=== PATIENT | female | born 2000 | race Caucasian/White ===

== ENCOUNTER 2025-07-04 00:01 | Inpatient (IN) | payer OTHER ==
[2025-07-04] MEDS ORDERED: hydrALAZINE 20 MG/ML VIAL SLOW IVP PRN (00:06)
[2025-07-04 00:29] VITALS: BMI 27.4
[2025-07-04 01:09] LABS: Fetal Membranes Rupture RUPTURE DETECTED (No Rupture)
[2025-07-04] MEDS ORDERED: Tranexamic Acid 1,000 MG/10 ML VIAL IVP PRN (01:22)
[2025-07-04] MEDS ORDERED: Lidocaine 1% (PF) 30 ML VIAL SC PRN (01:22)
[2025-07-04] MEDS ORDERED: Carboprost 250 MCG/ML AMP IM PRN (01:22)
[2025-07-04] MEDS ORDERED: Acetaminophen 500 MG TAB PO PRN (01:22)
[2025-07-04] MEDS ORDERED: Ondansetron PF 4 MG/2 ML Vial IVP PRN ×2 (01:22→08:22)
[2025-07-04] MEDS ORDERED: Diphenoxylate HCl/Atropine Tablet PO PRN ×2 (01:22)
[2025-07-04] MEDS ORDERED: Methylergonovine 0.2 MG/ML VIAL IM PRN (01:22)
[2025-07-04] MEDS ORDERED: Oxytocin 30 units/NS 500 ML 500 ML IV SCH (01:30)
[2025-07-04 01:35] LABS: Hematocrit 36.1 % (34.9-44.5); Hemoglobin 12.3 g/dL (12.0-15.5); Mean Corpuscular Hemoglobin 30.4 pg (27.0-33.0); Mean Corpuscular Volume 89.1 fL (81.6-98.3); Platelet Count 186 10x3/uL (150-450); Red Blood Cell (RBC) Count 4.05 10x6/uL (3.90-5.03); White Blood Cell (WBC) Count 11.05 10x3/uL (3.5-10.5)
[2025-07-04 02:07] LABS: Hep B Surf Ag - L&D Non-Reactive S/CO (NonReactive)
[2025-07-04 02:09] LABS: Syphilis Antibody Index 0.14 S/CO (<1.00 Non-Reactive)
[2025-07-04] MEDS: Oxytocin 30 units/NS 500 ML 500 ML IV SCH ×2 (06:13→18:32)
[2025-07-04] MEDS ORDERED: Acetaminophen 325 MG TAB PO PRN (08:22)
[2025-07-04] MEDS ORDERED: diphenhydrAMINE 50 MG/ML VIAL IVP PRN (08:22)
[2025-07-04] MEDS ORDERED: Communication Order-Pharmacy FS SCH (08:30)
[2025-07-04] MEDS: fentaNYL 2 mcg/Ropivacaine 0.2% Epidural 100 ML CADD EPIDURAL SCH (09:53)
[2025-07-04] MEDS: Ibuprofen 800 MG TAB PO PRN (18:31)
[2025-07-05] MEDS ORDERED: Bisacodyl 10 MG SUPP PR PRN (01:19)
[2025-07-05] MEDS ORDERED: Benzocaine-Menthol 82.5 ML CAN TOP PRN (01:19)
[2025-07-05] MEDS ORDERED: Ondansetron PF 4 MG/2 ML Vial IVP PRN (01:19)
[2025-07-05] MEDS ORDERED: Milk Of Magnesia 30 ML UDCUP PO PRN (01:19)
[2025-07-05] MEDS ORDERED: diphenhydrAMINE 25 MG CAP PO PRN (01:19)
[2025-07-05] MEDS ORDERED: HYDROcodone/Acetaminophen 5/325 mg Tablet PO PRN (01:19)
[2025-07-05] MEDS ORDERED: hydrALAZINE 20 MG/ML VIAL SLOW IVP PRN (01:19)
[2025-07-05] MEDS ORDERED: Preparation H Ointment 28 GM TUBE PR PRN (01:19)
[2025-07-05] MEDS ORDERED: Lanolin Ointment 7 GM TUBE TOP PRN (01:19)
[2025-07-05] MEDS: Ibuprofen 800 MG TAB PO SCH (01:50)
[2025-07-05] MEDS: fentaNYL/Ropivacaine Epidural 100 ML ONE (07:37)
[2025-07-05] MEDS: Methylergonovine 0.2 MG/ML VIAL ONE (07:37)
[2025-07-05] MEDS: Tranexamic Acid 1,000 MG/10 ML VIAL ONE (07:38)
[2025-07-05] MEDS: Oxytocin 30 units/NS 500 ML 500 ML ONE (07:38)
[2025-07-05] MEDS: Ferrous Sulfate 325 MG TAB PO SCH (07:40)
[2025-07-05] MEDS ORDERED: Bupivacaine/Epinephrine 0.25% 30 ML VIAL ONE (11:56)
[2025-07-06 11:48] VITALS: BP 114/66; TEMP 98.1
== END 2025-07-06 15:00 | disposition home or self-care (01) | DRG 807 ==
LOC: CSHLD/OP 00:01 → CSHLD 01:40 → CSHPP 19:45
PROVIDERS: ADMIT Student in an Organized Health Care Education/Training Program; ATTEND Student in an Organized Health Care Education/Training Program
PROC: 10E0XZZ Delivery of Products of Conception, External Approach (ICD-10-PCS; principal; 2025-07-04)
PROC: 0HQ9XZZ Repair Perineum Skin, External Approach (ICD-10-PCS; 2025-07-04)
PROC: 4A1HXCZ Monitoring of Products of Conception, Cardiac Rate, External Approach (ICD-10-PCS; 2025-07-04)
DX: O42.02 Full-term premature rupture of membranes, onset of labor within 24 hours of rupture (principal); Z37.0 Single live birth; Z3A.39 39 weeks gestation of pregnancy; O70.0 First degree perineal laceration during delivery; O69.81X0 Labor and delivery complicated by cord around neck, without compression, not applicable or unspecified; Z79.899 Other long term (current) drug therapy
CPT/HCPCS: 36415; 51702; 84112; 85027; 86780; 86850; 86900; 86901; 87340; 99285; J2590